=== PATIENT | female | born 1995 | race Caucasian/White ===

== ENCOUNTER 2023-01-03 10:27 | Emergency (ER) | payer OTHER, SELFPAY ==
--- NOTE | ~2023-01-03 | XR_ITS ---
EXAMINATION: XR shoulder RT min 2V DATE: 01/03/2023 10:55 INDICATION: Right shoulder injury. TECHNIQUE: 4 views of right shoulder were obtained. COMPARISON: None. FINDINGS: Bone alignment is normal. No fracture. Joint spaces are normal. IMPRESSION: 1. Normal right shoulder. Reviewed, dictated and finalized at location A. OW CLERK IMPRESSION: 1. Normal right shoulder.
[2023-01-03 10:37] VITALS: BP 143/85; PULSE 102; RESP 20; TEMP 36.8; O2SAT 98
--- NOTE | 2023-01-03 11:11 | ED.FALL ---
HPI - Fall General Chief Complaint: Fall Stated Complaint: Right Shoulder Injury History of Present Illness HPI Narrative: Patient presents with right shoulder pain and discomfort. Patient states 1 week ago she fell out of a [employer] truck landing on her right shoulder. Patient has a healing abrasion to her right elbow. No drainage no concern for infection to abrasion. Patient complains of pain to upper right shoulder. Normal range of motion improvement. No bruising no deformity noted. Patient has been taking Tylenol alternating with ibuprofen for pain and discomfort. Patient states she was doing well but last night she slept wrong and woke up with right pain and discomfort to her shoulder. Related Data Home Medications Medication Instructions Recorded Confirmed hydroxyzine HCl 10 mg tablet 10 mg PO HS PRN Anxiety 01/03/23 01/03/23 topiramate 50 mg tablet 50 mg PO DAILY 01/03/23 01/03/23 venlafaxine 75 mg capsule,extended 75 mg PO BID 01/03/23 01/03/23 release 24 hr Allergies Allergy/AdvReac Type Severity Reaction Status Date / Time Penicillins Allergy Hives Verified 01/03/23 11:06 azithromycin AdvReac Other Verified 01/03/23 11:06 Review of Systems Review of Systems: CONSTITUTIONAL: Denies fever, chills, or sweats. EYES: Denies visual changes, redness, or discharge. ENT: Denies rhinorrhea, congestion, sore throat, or otalgia. CARDIOVASCULAR: Denies chest pain, palpitations, or edema. RESPIRATORY: Denies cough or dyspnea. GASTROINTESTINAL: Denies abdominal pain, nausea, vomiting, or diarrhea. GENITOURINARY: Denies dysuria or hematuria. SKIN: Denies rash or itching. MUSCULOSKELETAL: Denies back pain, joint pain, or myalgia. NEUROLOGIC: Denies headache, numbness, or weakness. PSYCHIATRIC: Denies anxiety or depression. PMFSH Comments At time of signature, agree with nursing past medical, surgical, social and family history. There is no relevant family history pertinent to the presenting complaint Exam Narrative: GENERAL: Well-appearing, well-nourished, and in no acute distress. HEAD: Normocephalic, atraumatic. EYES: PERRLA and EOMI. ENT: Nares clear, no rhinorrhea or epistaxis. Mucous membranes moist. NECK: Supple. CHEST: Clear to auscultation. No respiratory distress. HEART: Regular rate and rhythm. No murmur heard. Normal peripheral pulses. ABDOMEN: Soft, nontender, nondistended, normal active bowel sounds. EXTREMITIES: Normal range of motion. No edema. NO SWELLING, BRUISING, SKIN CHANGES. SKIN INTACT. NORMAL RADIAL PULSE. NO DEFORMITY OF SHOULDER. NO CLAVICLE TENDERNESS. NORMAL UE SENSATION AND STRENGTH. ROM EVALUATED - CAN RAISE UE ABOVE SHOULDER, CAN ABDUCT, ADDUCT, EXTERNALLY ROTATE AND CAN INTERNALLY ROTATE AND RAISE THUMB UP THE SPINE. NO AC JOINT TENDERNESS, CAN CROSS ARM HORIZONTALLY AND PLACE HAND ON OPPOSITE SHOULDER, NO WINGING OF THE SCAPULA. SUPRASPINATUS APPEARS NORMAL WITH ARMS STRAIGHT OUT AT 30 DEGREES, THUMB DOWN , CAN ABDUCT AGAINST RESISTANCE. SKIN: Warm, dry, no rash. NEURO: No focal deficits. Alert and oriented x3. Ld Coma Scale Eye Opening: Spontaneous 4 Ld Coma Scale Motor: Obeys Commands 6 Ld Coma Scale Verbal: Oriented 5 Irwin Coma Scale Total 15 Course Course Level of Care: Express Care Visit Vital Signs Vital signs: Vital Signs Temperature 36.8 C 01/03/23 10:37 Pulse Rate 102 H 01/03/23 10:37 Respiratory Rate 20 01/03/23 10:37 Blood Pressure 143/85 H 01/03/23 10:37 Pulse Oximetry 98 01/03/23 10:37 Oxygen Delivery Room Air 01/03/23 10:37 Temperature 36.8 C 01/03/23 10:37 Pulse Rate 102 H 01/03/23 10:37 Respiratory Rate 20 01/03/23 10:37 Blood Pressure 143/85 H 01/03/23 10:37 Pulse Oximetry 98 01/03/23 10:37 Oxygen Delivery Room Air 01/03/23 10:37 Please KISHOR schedule a followup visit with your personal physician for further evaluation and treatment. Including recheck and discussion of your blood p
== END 2023-01-03 11:15 | disposition home or self-care (01) ==
PROVIDERS: Emergency Provider Nurse Practitioner Family
DX: S40.211A Abrasion of right shoulder, initial encounter (principal); Z79.899 Other long term (current) drug therapy; V89.9XXA Person injured in unspecified vehicle accident, initial encounter
CPT/HCPCS: 73030; 99213; G0463